=== PATIENT | female | born 1950 | race Caucasian/White ===

== ENCOUNTER 2017-10-27 16:36 | Observation (INO) ==
--- NOTE | 2017-10-27 17:05 | Emergency Department Note ---
Disposition Clinical Impression: Anemia Disposition: Admitted As Inpatient Condition: Fair General Adult HPI - General Chief complaint: ED Recheck/Abnormal Lab/Rx Stated complaint: anemia Source: EMS Limitations: no limitations Nursing Notes Reviewed: Yes Vital Signs Reviewed: Yes - History of Present Illness HPI Narrative: *Patient presents today with CC of: Anemia Patient describes issue began around over the last 2 months patient has been transfused because of anemia and she had been at [facility] being evaluated for collapsed lung as well as abdominal/ARMOR SENIOR SERGEANT malignancy. Patient had blood work done today at the care facility and was seen by Dr. Lares who found the blood count at 7 so she wanted the patient brought to the hospital to get 3 units of blood. Patient is generally asymptomatic and not having any complaints other than generalized weakness. She denies any shortness of breath chest pain or abdominal pain she just got out of the hospital 4 days ago from [facility] after workup for ARMOR SENIOR SERGEANT malignancy and a collapsed left lung Pain Scale: 3 - Related Data Home Medications Medication Instructions Recorded Confirmed Acetaminophen [Tylenol] 650 mg PO Q6HR 10/27/17 10/27/17 Albuterol Sulfate [Ventolin Hfa] 18 gm IH Q4H PRN 10/27/17 10/27/17 Aspirin [Lo-Dose Aspirin EC] 81 mg PO DAILY 10/27/17 10/27/17 Budesonide/Formoterol 160/4.5 2 puff IH BIDR 10/27/17 10/27/17 [Symbicort 160/4.5] Cyclobenzaprine [Flexeril] 5 mg PO PRN PRN 10/27/17 10/27/17 Enoxaparin [Lovenox] 60 mg SQ DAILY 10/27/17 10/27/17 Guaifenesin [Mucinex] 600 mg PO BID 10/27/17 10/27/17 Isavuconazonium Sulfate [Cresemba] 2 cap PO DAILY 10/27/17 10/27/17 Lisinopril [Zestril] 5 mg PO DAILY 10/27/17 10/27/17 Loratadine [Claritin] 10 mg PO PRN PRN 10/27/17 10/27/17 Metoprolol [Lopressor] 25 mg PO BID 10/27/17 10/27/17 Pantoprazole Sodium [Protonix] 40 mg PO BID 10/27/17 10/27/17 Pravastatin Sodium [Pravachol] 40 mg PO DAILY 10/27/17 10/27/17 Simethicone [Gas-X] 80 mg PO Q6H PRN 10/27/17 10/27/17 Tiotropium [Spiriva] 18 mcg IH 0700 10/27/17 10/27/17 Triamcinolone Acet [place] [Kenalog 2 spray NS DAILY 10/27/17 10/27/17 [place]] Urea 100 gm MC BID 10/27/17 10/27/17 Allergies Allergy/AdvReac Type Severity Reaction Status Date / Time ciprofloxacin [From Cipro] Allergy Rash Verified 08/09/17 20:31 prednisone Allergy Rash Verified 08/09/17 20:31 All systems ED: reviewed and negative except as stated. 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 The patient 's medications, allergies, and medical history was reviewed. Family, Social & Surg histories were reviewed and are not relevant except as noted above in the history of present illness, or below in the respective specific section. I have reviewed and agree with all vital signs synchronously available in EMR at the time of this dictation. Times documented are the time of computer entry, are not necessarily the time the event occurred. At least 10 systems reviewed with patient or surrogate during physical exam and are otherwise negative. Physical EXAM: General ~ Constitutional: Conscious & cooperative , pale generally elderly cachectic appearance Head: NCAT Eyes: Sclera white , conjunctiva clear , PERRL, non-icteric ENT : Nose with pink nasal mucosa, nares patent, non tender without bleeding Mouth - mucous membrane moist , pink , no lesions , no trismus Neck - no masses , supple , no cervical spinous process tenderness Pharynx - no exudate , no petechia or obvious lesions , no airway obstruction or stridor Hematologic ~ Lymphatic ~ Immunologic: Lymphadenopathy normal , no petechia , Skin color, nails and pulses unremarkable. Heart ~ Chest: Reg rate , nml Rhythm , nl S1/S2 , no MRG Lungs: Breath sounds equal , clear to auscultation bilaterally , no wheezing, no rales or rhonchi , no CVA tenderness Gastrointestinal ~ Abd: Soft & non tender , BS + in 4 quads , No HSM or masses , no peritoneal signs, colostomy site appears well.surgical wound dressing clean and dry, CT wound unremarkable GenitoUrinary: Deferred Musculoskeletal ~ Back ~ Extremities: Warm and w/o clubbing , cyanosis , or edema. No point tenderness , good ROM of major joints Neurologic: Cranial nerves grossly intact, good muscle strength , attention good , cooperative , Alert and oriented x4 Psychiatric: Calm , Insight and mood appropriate , Skin: No rashes , diminished skin turgor , cap refill 3 seconds , warm and dry - General Limitations: no limitations General appearance: alert, in no apparent distress Course Vital Signs Temperature 98.6 F 10/27/17 16:40 Pulse Rate 110 10/27/17 16:40 Respiratory Rate 16 10/27/17 16:40 Blood Pressure 113/81 10/27/17 16:40 O2 Sat by Pulse Oximetry 98 10/27/17 16:40 Temperature 97 F L 10/27/17 23:26 Pulse Rate 94 10/27/17 23:26 Respiratory Rate 16 10/27/17 23:26 Blood Pressure 127/76 10/27/17 23:26 O2 Sat by Pulse Oximetry 98 10/27/17 23:26 Oxygen Delivery Oxygen Delivery Room Air Medical Decision Making - MDM Narrative Medical decision making narrative: MDM: History and physical exam is consistent with - anemia DDx included multiple etiologies for the symptoms such as - anemia, malignancy , sepsis, atypical CP, ACS, Pneumonia, pneumothorax, Gerd, AAA, PE XRAYS: Not indicated at this time Critical Care: None Condition and evaluation here was discussed in detail. Labwork, and test results were reviewed with the patient. Patient will be typed and crossed and then Dr. Lares had requested 3 units of packed red cells to be administered with 20 mg of Lasix between units - Lab Data Lab Results 10/27/17 Range/Units 17:15 Blood Type A POSITIVE Antibody Screen NEGATIVE Crossmatch See Detail
[2017-10-27] MEDS ORDERED: *HR* OxyCODONE/APAP 5/325 TABLET PO PRN (18:45)
[2017-10-27] MEDS ORDERED: Furosemide 20 MG/2 ML VIAL IVP PRN (18:51)
[2017-10-27] MEDS ORDERED: Naloxone 0.4 MG/ML INJ IVP PRN (20:03)
[2017-10-27] MEDS ORDERED: Simethicone 80 MG TAB.CHEW PO PRN (20:03)
[2017-10-27] MEDS: Acetaminophen 325 MG TABLET PO SCH (20:59)
[2017-10-27] MEDS: UREA MC SCH (21:04)
[2017-10-27] MEDS ORDERED: Budesonide/Formoterol 160/4.5 1 PUFF INH IH SCH (22:00)
[2017-10-27] MEDS: *HR* OxyCODONE/APAP 5/325 TABLET PO PRN (22:00)
[2017-10-27] MEDS: Furosemide 20 MG/2 ML VIAL IVP PRN (23:42)
[2017-10-28] MEDS: Furosemide 20 MG/2 ML VIAL IVP PRN ×2 (03:16→06:38)
[2017-10-28] MEDS: Acetaminophen 325 MG TABLET PO SCH ×2 (03:24→06:37)
[2017-10-28] MEDS ORDERED: Tiotropium 18 MCG inhalation IH SCH (07:00)
[2017-10-28] MEDS ORDERED: Aspirin Enteric Coated 81 MG Tablet PO SCH (09:00)
[2017-10-28] MEDS ORDERED: Loratadine 10 MG TABLET PO SCH (09:00)
[2017-10-28] MEDS ORDERED: ISAVUCONAZONIUM SULFATE PO SCH (09:00)
[2017-10-28] MEDS ORDERED: *HR* Enoxaparin 60 MG/0.6 ML SYRINGE SQ SCH (09:00)
[2017-10-28] MEDS: *HR* OxyCODONE/APAP 5/325 TABLET PO PRN (09:32)
[2017-10-28] MEDS: UREA MC SCH (09:35)
[2017-10-28 10:07] LABS: Basophils # 0.1 K/mcL (0.0-0.2); Basophils % 0.5 %; Eosinophils # 0.2 K/mcL (0.0-0.6); Hematocrit 32.2 % (35.3-44.9); Immature Granulocytes % 1.3 % (0-4); Lymphocytes # 0.7 K/mcL (0.6-4.6); Lymphocytes % 7.6 %; Mean Corpuscular HGB Conc 34.2 g/dL (31.6-35.5); Mean Corpuscular Hemoglobin 30.3 pg (28.0-33.3); Mean Corpuscular Volume 88.7 fL (83.0-100.0); Mean Platelet Volume 9.6 fL (9.4-12.4); Monocytes # 0.9 K/mcL (0.0-1.3); Monocytes % 9.6 %; Neutrophils # 7.7 K/mcL (1.6-8.9); Platelet Count 213 K/mcL (140-400); Red Blood Count 3.63 M/mcL (3.82-4.97); Red Cell Distribution Width 16.4 % (11.5-14.5)
[2017-10-28 10:25] LABS: BUN/Creatinine Ratio 13 (6-26); Blood Urea Nitrogen 10 mg/dL (8-23); Calcium 9.2 mg/dL (8.6-10.3); Carbon Dioxide 24 mEq/L (23-29); Chloride 97 mEq/L (98-107); Glucose 111 mg/dL (70-105); Osmolality,Calculated 268 (280-300); Potassium 3.9 mEq/L (3.5-5.1); Sodium 129 mEq/L (136-145); eGFR For Non-African Americans > 60 (> 60)
[2017-10-28 11:49] VITALS: BP 120/78
--- NOTE | 2017-10-28 12:56 | Internal Med History&Physical ---
Date of Encounter: 10/28/17 Time of Encounter: 12:54 Assessment and Plan (1) Anemia Current visit: Yes Status: Acute Asymptomatic. Patient came with orders to transfuse 3 units of blood with Lasix in between for hemoglobin of 7 Qualifiers: Anemia type: unspecified type Qualified Code(s): D64.9 - Anemia, unspecified (2) Ovarian cancer Current visit: Yes Status: Chronic Scheduled to follow up with oncology on October 30 Qualifiers: Laterality: unspecified laterality Qualified Code(s): C56.9 - Malignant neoplasm of unspecified ovary Internal Medicine - H&P: HPI Admitted From: Long-term Nursing Facility Plans for Post Hospital Care: Transfer [employer] [facility] History of present illness: Ms. Garner is a 67 year old female here for blood transfusion. Hemoglobin 7.0. Has orders to transfuse 3 units of blood with Lasix in between. Patient asymptomatic. Has recently been diagnosed with ovarian cancer. Has had multiple surgeries. As well as blood transfusions. Being seen at [facility] by oncology. Reports recent left pneumothorax and was hospitalized at [facility] and just discharge 3 to 4 days ago. bedside. Denies pain, shortness of breath, fever, chills, nausea or vomiting. Has colostomy bag. Past Med Surg Social Fam HX - Past Medical History Medical history: asthma, cancer, COPD, diabetes, GERD, hyperlipidemia, hypertension, other Additional medical history: ILEOSTOMY Psychiatric history: no psych history - Past Surgical History Surgical History: hysterectomy, other Additional surgical history: bowel obstruction, ILEOSTOMY, TUMOR REMOVAL FROM OVARIES - Social History Smoking Status: Former smoker Smokeless Tobacco Status: No Alcohol use: none Drug use: none Internal Medicine - H&P: Meds Acetaminophen [Tylenol] 650 mg PO Q6HR 10/27/17 [History] Albuterol Sulfate [Ventolin Hfa] 18 gm IH Q4H PRN 10/27/17 [History] Aspirin [Lo-Dose Aspirin EC] 81 mg PO DAILY 10/27/17 [History] Budesonide/Formoterol 160/4.5 [Symbicort 160/4.5] 2 puff IH BIDR 10/27/17 [ History] Cyclobenzaprine [Flexeril] 5 mg PO PRN PRN 10/27/17 [History] Enoxaparin [Lovenox] 60 mg SQ DAILY 10/27/17 [History] Guaifenesin [Mucinex] 600 mg PO BID 10/27/17 [History] Isavuconazonium Sulfate [Cresemba] 2 cap PO DAILY 10/27/17 [History] Lisinopril [Zestril] 5 mg PO DAILY 10/27/17 [History] Loratadine [Claritin] 10 mg PO PRN PRN 10/27/17 [History] Metoprolol [Lopressor] 25 mg PO BID 10/27/17 [History] Pantoprazole Sodium [Protonix] 40 mg PO BID 10/27/17 [History] Pravastatin Sodium [Pravachol] 40 mg PO DAILY 10/27/17 [History] Simethicone [Gas-X] 80 mg PO Q6H PRN 10/27/17 [History] Tiotropium [Spiriva] 18 mcg IH 0700 10/27/17 [History] Triamcinolone Acet [place] [Kenalog [place]] 2 spray NS DAILY 10/27/17 [History] Urea 100 gm MC BID 10/27/17 [History] 3 Allergy/AdvReac Type Severity Reaction Status Date / Time ciprofloxacin [From Cipro] Allergy Rash Verified 08/09/17 20:31 prednisone Allergy Rash Verified 08/09/17 20:31 All Systems PM: A 10-system review of systems was performed and is negative for pertinent findings except as documented above in the HPI. - Constitutional Constitutional: no chills, no fever(s), no night sweats - EENT Eyes: no change in vision, no discharge, no pain, no photophobia Ears: no ear discharge, no ear pain, no tinnitus Nose, mouth and throat: no dysphagia, no nasal discharge, no neck pain, no sore throat - Cardiovascular Cardiovascular ROS IM: no chest pain, no diaphoresis, no dyspnea, no lightheadedness, no palpitations, no syncope - Respiratory Respiratory: no cough, no dyspnea, no wheezing, no excessive phlegm production - Gastrointestinal Gastrointestinal: no abdominal pain, no diarrhea, no hematemesis, no hematochezia, no melena, no nausea, no vomiting - Genitourinary Genitourinary: no change in urinary stream, no dysuria, no flank pain, no hematuria - Musculoskeletal Musculoskeletal ROS IM: no numbness, no tingling - Integumentary Integumentary IM: no rash, no unusual bruising - Neurological Neurological ROS: no confusion, no convulsions, no focal weakness, no numbness, no tingling, no tremor(s) - Hematologic/Lymphatic Hematologic/Lymphatic: no easy bruising - Constitutional Vitals: Temp Pulse Resp BP Pulse Ox 98.6 F 88 17 120/78 93 10/28/17 11:43 10/28/17 11:43 10/28/17 11:43 10/28/17 11:43 10/28/17 11:43 General appearance: Present: A&O X 3, pleasant, no acute distress, answers questions appropriately - Head Head exam: Present: atraumatic, normocephalic - Eye Eye exam: Present: PERRL, conjuntiva pink, sclera anicteric Pupils: Present: PERRL - Neck Neck exam general surgery: Present: supple, trachea midline. Absent: lymphadenopathy - Respiratory Respiratory exam: Present: CTAB. Absent: accessory muscle use, rales, rhonchi, wheezes - Cardiovascular Cardiovascular exam: Present: RRR, +S1, +S2. Absent: diastolic murmur, gallop, rubs, systolic murmur - GI/Abdominal GI/Abdominal exam: Present: normal bowel sounds, soft, no peritoneal signs. Absent: distended, tenderness Additional comments: Colostomy - Extremities Exam Extremities exam: Present: warm, radial pulses palpable and symmetrical. Absent : calf tenderness, cyanotic, pedal edema - Neurological Exam Neurological exam: Present: CN II-XII intact, oriented X3, no focal deficits. Absent: pronater drift, facial droop, speech deficit - Skin Skin exam: Present: dry, intact Additional comments: Dime sized with to coccyx area. Stage 2 Internal Med - H&P Results - Labs CBC & Chem 7: 10/28/17 10:00 10/28/17 10:00 Labs: Short CBC 10/28/17 Range/Units 10:00 WBC 9.7 (4.3-11.1) K/mcL Hgb 11.0 L D (11.5-15.4) g/dL Hct 32.2 L (35.3-44.9) % Plt Count 213 (140-400) K/mcL Neutrophils # 7.7 (1.6-8.9) K/mcL BMP 10/28/17 10:00 Sodium 129 L Potassium 3.9 Chloride 97 L Carbon Dioxide 24 BUN 10 Creatinine 0.77 Glucose 111 H Calcium 9.2 - VTE Documentation of Mechanical Device: Intermittent pneumatic compression device
--- NOTE | 2017-10-28 13:01 | Discharge Summary ---
Date of Encounter: 10/28/17 Time of Encounter: 12:59 - Discharge Diagnosis (1) Anemia Priority: Primary Status: Acute Comments: Follow up with oncology as scheduled. Has appointment October 30. Hemoglobin stable at 11.0 after receiving 3 units. Qualifiers: Anemia type: unspecified type Qualified Code(s): D64.9 - Anemia, unspecified (2) Ovarian cancer Priority: Secondary Status: Chronic Comments: Follow up with oncology Qualifiers: Laterality: unspecified laterality Qualified Code(s): C56.9 - Malignant neoplasm of unspecified ovary Hospital course: Ms. Garner is a 67 year old female discharging back to [facility] after receiving 3 units packed red blood cells. Patient asymptomatic and denies complaints. at bedside. Has follow-up appointment scheduled with oncology at [facility] on October 30.. Discharge discussed with: patient, family, nurse - Time Spent with Patient Total time spent providing and/or coordinating discharge services: Less than 30 minutes - Discharge Medications Home Medications: Acetaminophen [Tylenol] 650 mg PO Q6HR 10/27/17 [History] Albuterol Sulfate [Ventolin Hfa] 18 gm IH Q4H PRN 10/27/17 [History] Aspirin [Lo-Dose Aspirin EC] 81 mg PO DAILY 10/27/17 [History] Budesonide/Formoterol 160/4.5 [Symbicort 160/4.5] 2 puff IH BIDR 10/27/17 [ History] Cyclobenzaprine [Flexeril] 5 mg PO PRN PRN 10/27/17 [History] Enoxaparin [Lovenox] 60 mg SQ DAILY 10/27/17 [History] Guaifenesin [Mucinex] 600 mg PO BID 10/27/17 [History] Isavuconazonium Sulfate [Cresemba] 2 cap PO DAILY 10/27/17 [History] Lisinopril [Zestril] 5 mg PO DAILY 10/27/17 [History] Loratadine [Claritin] 10 mg PO PRN PRN 10/27/17 [History] Metoprolol [Lopressor] 25 mg PO BID 10/27/17 [History] Pantoprazole Sodium [Protonix] 40 mg PO BID 10/27/17 [History] Pravastatin Sodium [Pravachol] 40 mg PO DAILY 10/27/17 [History] Simethicone [Gas-X] 80 mg PO Q6H PRN 10/27/17 [History] Tiotropium [Spiriva] 18 mcg IH 0700 10/27/17 [History] Triamcinolone Acet [place] [Kenalog [place]] 2 spray NS DAILY 10/27/17 [History] Urea 100 gm MC BID 10/27/17 [History] Allergies/Adverse Reactions: 3 Allergy/AdvReac Type Severity Reaction Status Date / Time ciprofloxacin [From Cipro] Allergy Rash Verified 08/09/17 20:31 prednisone Allergy Rash Verified 08/09/17 20:31 Date of admission: 10/27/17 18:14 Primary care physician: Onel Garcia Discharging clinician: Sourav Hamm Anticipated date of discharge: 10/28/17 - Constitutional Vitals: Temp Pulse Resp BP Pulse Ox 98.6 F 88 17 120/78 93 10/28/17 11:43 10/28/17 11:43 10/28/17 11:43 10/28/17 11:43 10/28/17 11:43 General appearance: Present: cooperative, A&O X 3, pleasant, no acute distress, answers questions appropriately - Head Head exam: Present: atraumatic, normocephalic - Eye Eye exam: Present: PERRL, conjuntiva pink, sclera anicteric Pupils: Present: PERRL - Neck Neck exam general surgery: Present: supple, trachea midline. Absent: lymphadenopathy - Respiratory Respiratory exam: Present: CTAB. Absent: accessory muscle use, rales, rhonchi, wheezes - Cardiovascular Cardiovascular exam: Present: RRR, +S1, +S2. Absent: diastolic murmur, gallop, rubs, systolic murmur - GI/Abdominal GI/Abdominal exam: Present: normal bowel sounds, soft, no peritoneal signs. Absent: distended, tenderness Additional comments: Colostomy - Extremities Exam Extremities exam: Present: warm, radial pulses palpable and symmetrical. Absent : calf tenderness, cyanotic, pedal edema - Neurological Exam Neurological exam: Present: CN II-XII intact, oriented X3, no focal deficits. Absent: pronater drift, facial droop, speech deficit - Skin Skin exam: Present: dry, intact - Patient Status Disposition: Transfer SNF Condition: Fair Functional capacity at discharge: bed bound Overall status at discharge: patient is progressing back to baseline - Discharge Instructions Follow Up With: Onel Garcia MD [Primary Care Provider] - - Diet and Activity Activity: as per physical therapy Diet: advance to your usual diet - VTE Documentation of Mechanical Device: Intermittent pneumatic compression device
== END 2017-10-28 13:15 ==
LOC: INPGRE 16:36 → EMEROOGRE 16:36 → INPGRE 18:19

== ENCOUNTER 2017-12-13 03:34 | Inpatient (IN) ==
--- NOTE | 2017-12-13 04:05 | Emergency Department Note ---
Disposition Clinical Impression: Hyponatremia Disposition: Admitted As Inpatient Referrals: Mary Lares MD [Primary Care Provider] - General Adult HPI - General Stated complaint: pain in top of head Time Seen by Provider: 12/13/17 03:50 Source: patient, family Mode of arrival: ambulatory Limitations: no limitations Nursing Notes Reviewed: Yes Vital Signs Reviewed: Yes - History of Present Illness HPI Narrative: Patient is sent here by primary care provider because of a low sodium. Family says his been fighting a low sodium for quite some time. She has ovarian cancer and chemotherapy on Sunday. In the hospital not too long ago and high sick ever get her sodium was 127. She apparently had recheck last night and it was 120 so they sent her here to the emergency department Onset (ago): week(s) Pain Severity: similar to prior episodes Improves with: nothing Worsens with: nothing Associated symptoms: Reports: denies other symptoms (Nothing acute. She has continued pain in her left leg from foot drop from a blood clot.) - Related Data Home Medications Medication Instructions Recorded Confirmed Acetaminophen [Tylenol] 650 mg PO Q6HR 10/27/17 12/13/17 Guaifenesin [Mucinex] 600 mg PO BID 10/27/17 12/13/17 Loratadine [Claritin] 10 mg PO PRN PRN 10/27/17 12/13/17 Pantoprazole Sodium [Protonix] 40 mg PO BID 10/27/17 12/13/17 Pravastatin Sodium [Pravachol] 40 mg PO DAILY 10/27/17 12/13/17 Simethicone [Gas-X] 80 mg PO Q6H PRN 10/27/17 12/13/17 Tiotropium [Spiriva] 18 mcg IH 0700 10/27/17 12/13/17 Urea 100 gm MC BID 10/27/17 12/13/17 Cholecalciferol (Vitamin D3) 50,000 unit PO QWEEK 12/13/17 12/13/17 [Vitamin D3] Cyanocobalamin (Vitamin B-12) 2,000 mcg SL DAILY 12/13/17 12/13/17 [B-12] Ferrous Sulfate [Iron] 325 mg PO DAILY 12/13/17 12/13/17 Fluticasone/Vilanterol [Breo 1 each IH DAILY 12/13/17 12/13/17 Ellipta 100-25 Mcg INH] Isavuconazonium Sulfate [Cresemba] 2 cap PO DAILY 12/13/17 12/13/17 Magnesium Oxide [Magnesium] 500 mg PO DAILY 12/13/17 12/13/17 Melatonin [Melatin] 3 mg PO HS 12/13/17 12/13/17 Mirtazapine [Remeron] 15 mg PO HS 12/13/17 12/13/17 Ondansetron ODT [Zofran ODT] 4 mg SL Q6HR PRN 12/13/17 12/13/17 OxyCODONE Immed Rel [Roxicodone 5 5 mg PO DAILY 12/13/17 12/13/17 MG] OxyCODONE Immed Rel [Roxicodone 5 5 mg PO HS 12/13/17 12/13/17 MG] OxyCODONE Immed Rel [Roxicodone 5 5 mg PO Q6HR PRN 12/13/17 12/13/17 MG] Rivaroxaban [Xarelto] 20 mg PO DAILY 12/13/17 12/13/17 Sodium Chloride [Sodium Chloride 1 gm PO TID 12/13/17 12/13/17 Tab] Triamcinolone Acetonide [Nasacort] 2 spray NS DAILY 12/13/17 12/13/17 Allergies Allergy/AdvReac Type Severity Reaction Status Date / Time ciprofloxacin [From Cipro] Allergy Rash Verified 12/13/17 03:42 prednisone Allergy Rash Verified 12/13/17 03:42 All systems ED: reviewed and negative except as stated. Review of Systems: As Per HPI Constitutional: Denies: fever, chills, weakness, weight change Eyes: Denies: eye pain, eye discharge, vision change ENT ED: Denies: ear pain, throat pain, dental pain, hearing loss, epistaxis, congestion, dysphagia Cardiovascular: Denies: chest pain, palpitations, dyspnea on exertion, edema, syncope Respiratory: Denies: cough, dyspnea, wheezes, hemoptysis, stridor Gastrointestinal: Denies: abdominal pain, nausea, vomiting, diarrhea, constipation, hematemesis, melena, hematochezia Genitourinary: Denies: dysuria, frequency, hematuria, discharge Musculoskeletal: Reports: as per HPI Integumentary: Denies: rash, abrasion, lesions Neurological: Denies: headache, weakness, numbness, paresthesias, confusion, abnormal gait, vertigo Psychiatric: Denies: anxiety, depression, suicidal thoughts, homicidal thoughts , auditory hallucinations, visual hallucinations Endocrine: Reports: as per HPI (low sodium). Denies: fatigue Hematological/Lymphatic: Denies: easy bleeding, easy bruising Allergic/Immunologic: Denies: facial swelling, urticaria Past Medical History - Past Medical History Attestation: Yes The following information was validated with the patient. 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 - Social History Smoking Status: Former smoker Smokeless Tobacco Status: No Alcohol use: Reports: none Drug use: Reports: none Physical Exam - General Limitations: no limitations General appearance: alert, in no apparent distress - Head Head exam: atraumatic, normocephalic, normal inspection - Eye Eye exam: Present: normal appearance, PERRL, EOMI - ENT ENT exam: normal exam, normal oropharynx, mucous membranes moist - Neck Neck exam: Present: normal inspection, full ROM, trachea midline - Chest Chest inspection: Present: normal inspection, symmetric chest wall rise - Respiratory Respiratory exam: Present: normal lung sounds bilaterally - Cardiovascular Cardiovascular exam: Present: regular rate, normal rhythm, normal heart sounds - Abdominal Exam Abdominal exam: Present: soft, Non-Tender - Extremities Exam Extremities exam: Present: normal inspection, other (slightly decreased turgor) - Back Exam Back exam: Present: normal inspection, full ROM. Absent: tenderness - Neurological Exam Neurological exam: Present: alert, oriented X3 - Psychiatric Psychiatric exam: Present: normal affect, normal mood - Skin Skin exam: Present: warm, dry, intact Medical Decision Making - MDM Narrative Medical decision making narrative: I reviewed the patient's medication list Case was discussed with Dr. Hamm who agrees with admission to the hospital and place the patient on fluid restriction - Lab Data Lab results reviewed: Yes I reviewed the patient's lab results.
[2017-12-13] MEDS ORDERED: 0.9 % Sodium Chloride 1,000 ML IVC ONE (04:06)
[2017-12-13 04:24] LABS: Basophils % 0.4 %; Eosinophils # 0.1 K/mcL (0.0-0.6); Hematocrit 25.3 % (35.3-44.9); Hemoglobin 8.9 g/dL (11.5-15.4); Immature Granulocytes % 10.3 % (0-4); Lymphocytes # 0.5 K/mcL (0.6-4.6); Lymphocytes % 5.9 %; Mean Corpuscular HGB Conc 35.2 g/dL (31.6-35.5); Mean Corpuscular Hemoglobin 31.2 pg (28.0-33.3); Mean Corpuscular Volume 88.8 fL (83.0-100.0); Mean Platelet Volume 10.2 fL (9.4-12.4); Monocytes # 0.3 K/mcL (0.0-1.3); Monocytes % 4.4 %; Neutrophils # 6.1 K/mcL (1.6-8.9); Platelet Count 218 K/mcL (140-400); Red Blood Count 2.85 M/mcL (3.82-4.97)
[2017-12-13 04:50] LABS: BUN/Creatinine Ratio 9 (6-26); Blood Urea Nitrogen 4 mg/dL (8-23); Calcium 7.9 mg/dL (8.6-10.3); Carbon Dioxide 25 mEq/L (23-29); Chloride 92 mEq/L (98-107); Glucose 99 mg/dL (70-105); Osmolality,Calculated 247 (280-300); Potassium 3.2 mEq/L (3.5-5.1); Sodium 120 mEq/L (136-145); eGFR For Non-African Americans > 60 (> 60)
[2017-12-13] MEDS ORDERED: Simethicone 80 MG TAB.CHEW PO PRN (06:13)
[2017-12-13] MEDS ORDERED: Ondansetron ODT 4 MG TAB.RAPDIS SL PRN (06:13)
[2017-12-13] MEDS ORDERED: Naloxone 0.4 MG/ML INJ IVP PRN (06:13)
[2017-12-13] MEDS ORDERED: *HR* OxyCODONE Immed Rel 5 MG TABLET PO PRN (06:13)
[2017-12-13] MEDS ORDERED: Loratadine 10 MG TABLET PO PRN (06:13)
[2017-12-13] MEDS: Acetaminophen 325 MG TABLET PO SCH ×4 (06:42→23:38)
[2017-12-13] MEDS: *HR* Rivaroxaban 10 MG TABLET PO SCH (09:25)
[2017-12-13] MEDS: Magnesium Oxide 400 MG TABLET PO SCH (09:26)
[2017-12-13] MEDS: *HR* OxyCODONE Immed Rel 5 MG TABLET PO SCH ×2 (09:26→23:38)
[2017-12-13] MEDS: UREA TP SCH ×2 (09:27→23:35)
[2017-12-13] MEDS: ISAVUCONAZONIUM SULFATE PO SCH (09:27)
[2017-12-13] MEDS: Cyanocobalamin (B-12) 1,000 MCG TABLET PO SCH (09:27)
[2017-12-13] MEDS: (Breo Ellipta 100-25 Mcg Inh) IH SCH (09:28)
--- NOTE | 2017-12-13 09:49 | Internal Med History&Physical ---
Date of Encounter: 12/13/17 Time of Encounter: 09:37 Assessment and Plan (1) Hyponatremia Current visit: Yes Status: Acute Sodium 120. Placed on fluid restriction. Will monitor labs. Asymptomatic (2) Hypokalemia Current visit: Yes Status: Acute Potassium 3.2. Will start supplement. (3) Anemia Current visit: Yes Status: Acute Stable at 8.9. Asymptomatic Qualifiers: Anemia type: unspecified type Qualified Code(s): D64.9 - Anemia, unspecified (4) Ovarian cancer Current visit: Yes Status: Chronic Currently undergoing chemotherapy. Scheduled for chemo again on Sunday. Follow up with oncologist as scheduled. Qualifiers: Laterality: unspecified laterality Qualified Code(s): C56.9 - Malignant neoplasm of unspecified ovary Internal Medicine - H&P: HPI Admitted From: Emergency Dept Plans for Post Hospital Care: Home History of present illness: Ms. Garner is a 67 year old female patient here for observation after being sent to the emergency room for hyponatremia. Patient was at [facility]. Sodium resolved 120. Patient has history of ovarian cancer, COPD, hypertension , colostomy, Gerd, diabetes. Patient has a DVT in left leg. Has a filter placed in left groin. Patient was placed on fluid restriction. Hyponatremia is an ongoing problem for several months now. Patient is scheduled for chemotherapy on Sunday. States she has had sinus headache for 3 days now. Denies fever, chills, nausea, vomiting or diarrhea. Denies shortness of breath or chest pain. at bedside and participates with care. Past Med Surg Social Fam HX - Past Medical History Medical history: asthma, cancer, COPD, diabetes, GERD, hyperlipidemia, hypertension, other Additional medical history: Ovarian cancer Psychiatric history: no psych history - Past Surgical History Surgical History: hysterectomy, other Additional surgical history: Tumor removed from ovarian cancer - Social History Smoking Status: Former smoker Smokeless Tobacco Status: No Alcohol use: none Drug use: none - Family History Mother Living Status: Hx Family Cardiac Disorders: Yes Grandmother Living Status: Hx Family Endocrine Disorder: Yes Internal Medicine - H&P: Meds Acetaminophen [Tylenol] 650 mg PO Q6HR 10/27/17 [History] Guaifenesin [Mucinex] 600 mg PO BID 10/27/17 [History] Loratadine [Claritin] 10 mg PO PRN PRN 10/27/17 [History] Pantoprazole Sodium [Protonix] 40 mg PO BID 10/27/17 [History] Pravastatin Sodium [Pravachol] 40 mg PO DAILY 10/27/17 [History] Simethicone [Gas-X] 80 mg PO Q6H PRN 10/27/17 [History] Tiotropium [Spiriva] 18 mcg IH 0700 10/27/17 [History] Urea 100 gm MC BID 10/27/17 [History] Cholecalciferol (Vitamin D3) [Vitamin D3] 50,000 unit PO QWEEK 12/13/17 [History ] Cyanocobalamin (Vitamin B-12) [B-12] 2,000 mcg SL DAILY 12/13/17 [History] Ferrous Sulfate [Iron] 325 mg PO DAILY 12/13/17 [History] Fluticasone/Vilanterol [Breo Ellipta 100-25 Mcg INH] 1 each IH DAILY 12/13/17 [ History] Isavuconazonium Sulfate [Cresemba] 2 cap PO DAILY 12/13/17 [History] Magnesium Oxide [Magnesium] 500 mg PO DAILY 12/13/17 [History] Melatonin [Melatin] 3 mg PO HS 12/13/17 [History] Mirtazapine [Remeron] 15 mg PO HS 12/13/17 [History] Ondansetron ODT [Zofran ODT] 4 mg SL Q6HR PRN 12/13/17 [History] OxyCODONE Immed Rel [Roxicodone 5 MG] 5 mg PO DAILY 12/13/17 [History] OxyCODONE Immed Rel [Roxicodone 5 MG] 5 mg PO HS 12/13/17 [History] OxyCODONE Immed Rel [Roxicodone 5 MG] 5 mg PO Q6HR PRN 12/13/17 [History] Rivaroxaban [Xarelto] 20 mg PO DAILY 12/13/17 [History] Sodium Chloride [Sodium Chloride Tab] 1 gm PO TID 12/13/17 [History] Triamcinolone Acetonide [Nasacort] 2 spray NS DAILY 12/13/17 [History] 3 Allergy/AdvReac Type Severity Reaction Status Date / Time ciprofloxacin [From Cipro] Allergy Rash Verified 12/13/17 03:42 prednisone Allergy Rash Verified 12/13/17 03:42 All Systems PM: A 10-system review of systems was performed and is negative for pertinent findings except as documented above in the HPI. - Constitutional Constitutional: no chills, no fever(s), no night sweats - EENT Eyes: no change in vision, no discharge, no pain, no photophobia Ears: no ear discharge, no ear pain, no tinnitus Nose, mouth and throat: no dysphagia, no nasal discharge, no neck pain, no sore throat - Cardiovascular Cardiovascular ROS IM: no chest pain, no diaphoresis, no dyspnea, no lightheadedness, no palpitations, no syncope - Respiratory Respiratory: no cough, no dyspnea, no wheezing, no excessive phlegm production - Gastrointestinal Gastrointestinal: no abdominal pain, no diarrhea, no hematemesis, no hematochezia, no melena, no nausea, no vomiting - Genitourinary Genitourinary: no change in urinary stream, no dysuria, no flank pain, no hematuria - Musculoskeletal Musculoskeletal ROS IM: no numbness, no tingling - Integumentary Integumentary IM: no rash, no unusual bruising - Neurological Neurological ROS: no confusion, no convulsions, no focal weakness, no numbness, no tingling, no tremor(s) - Hematologic/Lymphatic Hematologic/Lymphatic: no easy bruising - Constitutional Vitals: Temp Pulse Resp BP Pulse Ox 97.2 F L 98 17 147/79 98 12/13/17 06:57 12/13/17 06:57 12/13/17 06:57 12/13/17 06:57 12/13/17 06:57 General appearance: Present: A&O X 3, pleasant, no acute distress, answers questions appropriately - Head Head exam: Present: atraumatic, normocephalic - Eye Eye exam: Present: PERRL, conjuntiva pink, sclera anicteric Pupils: Present: PERRL - Neck Neck exam general surgery: Present: supple, trachea midline. Absent: lymphadenopathy - Respiratory Respiratory exam: Present: CTAB. Absent: accessory muscle use, rales, rhonchi, wheezes - Cardiovascular Cardiovascular exam: Present: RRR, +S1, +S2. Absent: diastolic murmur, gallop, rubs, systolic murmur - GI/Abdominal GI/Abdominal exam: Present: normal bowel sounds, soft, no peritoneal signs. Absent: distended, tenderness Additional comments: Colostomy - Extremities Exam Extremities exam: Present: warm, radial pulses palpable and symmetrical. Absent : calf tenderness, cyanotic, pedal edema Additional comments: Left lower extremity slight edema, non-pitting - Neurological Exam Neurological exam: Present: CN II-XII intact, oriented X3, no focal deficits. Absent: pronater drift, facial droop, speech deficit - Skin Skin exam: Present: dry, intact Internal Med - H&P Results - Labs CBC & Chem 7: 12/13/17 04:21 12/13/17 04:21
[2017-12-13] MEDS: Tiotropium 18 MCG inhalation IH SCH (09:52)
[2017-12-13] MEDS: Cholecalciferol (D-3) 1,000 UNIT TABLET PO SCH (13:42)
[2017-12-13 14:01] LABS: Bilirubin,Urine Negative (Negative); Blood,Urine Negative (Negative); Clarity,Urine Clear (Clear); Color,Urine Yellow (Yellow); Glucose,Urine (UA) Normal (Normal); Ketones,Urine Negative (Negative); Leukocyte Esterase,Urine Negative (Negative); Nitrite,Urine Negative (Negative); Protein,Urine Negative (Neg-Trace); Specific Gravity,Urine 1.015 (1.010-1.025); Urobilinogen,Urine Normal (Normal)
[2017-12-13] MEDS ORDERED: tiZANidine 4 MG TABLET PO PRN (18:24)
[2017-12-13] MEDS: Melatonin 3 MG TABLET PO SCH (23:35)
[2017-12-13] MEDS: Mirtazapine 15 MG TABLET PO SCH (23:35)
[2017-12-14] MEDS: Acetaminophen 325 MG TABLET PO SCH ×4 (06:30→23:46)
[2017-12-14] MEDS: Tiotropium 18 MCG inhalation IH SCH (08:13)
[2017-12-14] MEDS: Cholecalciferol (D-3) 1,000 UNIT TABLET PO SCH (09:17)
[2017-12-14] MEDS: *HR* Rivaroxaban 10 MG TABLET PO SCH (09:18)
[2017-12-14] MEDS: Magnesium Oxide 400 MG TABLET PO SCH (09:18)
[2017-12-14] MEDS: Cyanocobalamin (B-12) 1,000 MCG TABLET PO SCH (09:18)
[2017-12-14] MEDS: *HR* OxyCODONE Immed Rel 5 MG TABLET PO SCH ×2 (09:19→20:56)
[2017-12-14] MEDS: (Breo Ellipta 100-25 Mcg Inh) IH SCH (09:19)
[2017-12-14] MEDS: UREA TP SCH ×2 (09:24→20:55)
[2017-12-14] MEDS: ISAVUCONAZONIUM SULFATE PO SCH (09:24)
--- NOTE | 2017-12-14 09:28 | Internal Med Progress Note ---
Date of Encounter: 12/14/17 Time of Encounter: 09:26 - Assessment and plan (1) Hyponatremia Current Visit: Yes Status: Acute Assessment and plan: Labs ordered for today. Will monitor. Asymptomatic at this time. (2) Hypokalemia Current Visit: Yes Status: Acute Assessment and plan: Will repeat labs today. Will monitor for results. (3) Anemia Current Visit: Yes Status: Acute Assessment and plan: Stable. Asymptomatic. Will repeat labs today. Qualifiers: Anemia type: unspecified type Qualified Code(s): D64.9 - Anemia, unspecified (4) Ovarian cancer Current Visit: Yes Status: Chronic Assessment and plan: Follow up with oncology as scheduled. Reports to have 3 chemo treatments left. Qualifiers: Laterality: unspecified laterality Qualified Code(s): C56.9 - Malignant neoplasm of unspecified ovary - Time Spent With Patient less than 15 minutes - Subjective Interval history: c/o pain in left ankle. xray unremarkable. c/o off and on discomfort in left lower back. will increase tizanidine. states abdominal and pain has improved. Was able to eat a bowl of cereal this morning. Colostomy producing. Dressing to abdominal area is dry and intact. Denies any other complaints at this time. at bedside. - Constitutional Vitals: Temp Pulse Resp BP Pulse Ox 98.0 F 118 18 159/84 93 12/14/17 08:00 12/14/17 08:00 12/14/17 08:24 12/14/17 08:00 12/14/17 08:24 General appearance: Present: A&O X 3, pleasant, no acute distress, answers questions appropriately - Head Head exam: Present: atraumatic, normocephalic - Eye Eye exam: Present: PERRL, conjuntiva pink, sclera anicteric Pupils: Present: PERRL - Neck Neck exam general surgery: Present: supple, trachea midline. Absent: lymphadenopathy - Respiratory Respiratory exam: Present: CTAB. Absent: accessory muscle use, rales, rhonchi, wheezes - Cardiovascular Cardiovascular exam: Present: irregular rhythm, +S1, +S2. Absent: diastolic murmur, gallop, rubs, systolic murmur - GI/Abdominal GI/Abdominal exam: Present: normal bowel sounds, soft, no peritoneal signs. Absent: distended, tenderness Additional comments: Colostomy intact - Extremities Exam Extremities exam: Present: warm, radial pulses palpable and symmetrical. Absent : calf tenderness, cyanotic, pedal edema Additional comments: Left foot drop - Neurological Exam Neurological exam: Present: CN II-XII intact, oriented X3, no focal deficits. Absent: pronater drift, facial droop, speech deficit - Skin Skin exam: Present: dry, intact Additional comments: Abdominal dressing dry and intact. Internal Medicine: Result - Labs CBC & Chem 7: 12/13/17 04:21 12/13/17 04:21 Labs: Urine 12/13/17 Range/Units 12:50 Urine Color Yellow (Yellow) Urine Clarity Clear (Clear) Urine pH 7.0 (5.0-8.0) pH Units Ur Specific [place] 1.015 (1.010-1.025) Urine Protein Negative (Neg-Trace) mg/dL Urine Glucose (UA) Normal (Normal) mg/dL - Impressions Impressions Ankle X-Ray 12/13/17 13:06 IMPRESSION: No radiographic evidence of acute osseous abnormalities. D/ / Cameron Melendrez MD / Cameron Melendrez MD Interpreting Provider: Cameron Melendrez MD Chest X-Ray 12/13/17 13:07 IMPRESSION: 1. No acute findings in the chest. 2. Left basilar scarring and suspected trace pleural effusion. D/ / Cristopher Love MD / Cristopher Love MD Interpreting Provider: Cristopher Love MD Consult Discharge Plan - Plan
[2017-12-14] MEDS: tiZANidine 4 MG TABLET PO PRN ×2 (10:29→15:26)
[2017-12-14 12:55] LABS: BUN/Creatinine Ratio 12 (6-26); Blood Urea Nitrogen 6 mg/dL (8-23); Calcium 8.6 mg/dL (8.6-10.3); Carbon Dioxide 25 mEq/L (23-29); Chloride 97 mEq/L (98-107); Glucose 100 mg/dL (70-105); Osmolality,Calculated 264 (280-300); Potassium 3.9 mEq/L (3.5-5.1); Sodium 128 mEq/L (136-145); eGFR For Non-African Americans > 60 (> 60)
[2017-12-14] MEDS: Mirtazapine 15 MG TABLET PO SCH (20:55)
[2017-12-14] MEDS: Melatonin 3 MG TABLET PO SCH (20:55)
[2017-12-15] MEDS: Acetaminophen 325 MG TABLET PO SCH ×2 (05:35→13:50)
--- NOTE | 2017-12-15 10:18 | Electrocardiograph Report ---
[place] [id number] Test Date: 2017-12-13 Pat Name: Shelly Garner Department: 2001 Room: 113 Gender: F Teletype Or [place]ity[place] Keyboard Operator: Tb : 1950 Requested By: Sourav Hamm Order Number: [id number] Reading MD: Mare Murdock Measurements Intervals [place] Rate: 115 P: NH: 0 QRS: 41 QRSD: 92 T: 45 QT: 296 QTc: 364 Interpretive Statements SINUS TACHYCARDIA NONSPECIFIC T-WAVE ABNORMALITY ABNORMAL RHYTHM ECG Electronically Signed On 12-15-2017 10:16:59 EDT by Mare Murdock
[2017-12-15] MEDS: Cholecalciferol (D-3) 1,000 UNIT TABLET PO SCH (11:10)
[2017-12-15] MEDS: Cyanocobalamin (B-12) 1,000 MCG TABLET PO SCH (11:10)
[2017-12-15] MEDS: *HR* OxyCODONE Immed Rel 5 MG TABLET PO SCH (11:11)
[2017-12-15] MEDS: *HR* Rivaroxaban 10 MG TABLET PO SCH (11:11)
[2017-12-15] MEDS: Magnesium Oxide 400 MG TABLET PO SCH (11:12)
[2017-12-15 11:40] VITALS: BP 151/92
[2017-12-15 11:43] LABS: BUN/Creatinine Ratio 13 (6-26); Blood Urea Nitrogen 8 mg/dL (8-23); Calcium 8.8 mg/dL (8.6-10.3); Carbon Dioxide 19 mEq/L (23-29); Chloride 100 mEq/L (98-107); Glucose 103 mg/dL (70-105); Osmolality,Calculated 263 (280-300); Potassium 4.4 mEq/L (3.5-5.1); Sodium 127 mEq/L (136-145); eGFR For Non-African Americans > 60 (> 60)
[2017-12-15] MEDS: ISAVUCONAZONIUM SULFATE PO SCH (12:11)
[2017-12-15] MEDS: (Breo Ellipta 100-25 Mcg Inh) IH SCH (12:11)
[2017-12-15] MEDS: UREA TP SCH (12:11)
[2017-12-15] MEDS: Tiotropium 18 MCG inhalation IH SCH (12:58)
--- NOTE | 2017-12-15 13:28 | Discharge Summary ---
- NOTES TO OUTPATIENT PROVIDER Notes to Outpatient Provider: Only to be considered for liberalization of fluids status and continuation of demeclocycline. Recommend at least once weekly having sodium level checked. Orders not resulted at time of discharge: Pending orders 12/13/17 15:00 Culture,Wound [RM] Routine Date of Encounter: 12/15/17 Time of Encounter: 13:26 - Discharge Diagnosis (1) Hyponatremia Priority: Primary Status: Resolved (2) Ovarian cancer Priority: Secondary Status: Chronic Qualifiers: Laterality: unspecified laterality Qualified Code(s): C56.9 - Malignant neoplasm of unspecified ovary (3) COPD (chronic obstructive pulmonary disease) Priority: Secondary Status: Chronic Qualifiers: COPD type: emphysema Emphysema type: unspecified Qualified Code(s): J43.9 - Emphysema, unspecified (4) Hypertension Priority: Secondary Status: Acute Qualifiers: Hypertension type: essential hypertension Qualified Code(s): I10 - Essential (primary) hypertension (5) S/P colostomy Priority: Secondary Status: Chronic (6) GERD (gastroesophageal reflux disease) Priority: Secondary Status: Chronic Qualifiers: Esophagitis presence: without esophagitis Qualified Code(s): K21.9 - Gastro -esophageal reflux disease without esophagitis (7) Diabetes Priority: Secondary Status: Acute Qualifiers: Diabetes mellitus type: type 2 Diabetes mellitus watermaster insulin use: without mcc use Diabetes mellitus complication status: without complication Qualified Code(s): E11.9 - Type 2 diabetes mellitus without complications (8) Anemia Priority: Secondary Status: Acute Qualifiers: Anemia type: unspecified type Qualified Code(s): D64.9 - Anemia, unspecified (9) Hypokalemia Priority: Secondary Status: Acute Hospital course: Ms. Garner is a 67 year old female with history of ovarian cancer who has multiple episodes of hyponatremia. She was to see a rejected items clerk but did not keep this appointment. She was admitted with a sodium of 120 and because his persisted, even with distraction, we added demeclocycline. She had quick elevation of her sodium to 128 and was 127 at discharge. We will ask that she be monitored at her ECF and consider nephrology follow-up if this is continued problem. - Time Spent with Patient Total time spent providing and/or coordinating discharge services: - Discharge Medications Prescriptions: Demeclocycline [Declomycin] 300 mg PO Q12HR #30 tablet Home Medications: Acetaminophen [Tylenol] 650 mg PO Q6HR 10/27/17 [History] Guaifenesin [Mucinex] 600 mg PO BID 10/27/17 [History] Loratadine [Claritin] 10 mg PO PRN PRN 10/27/17 [History] Pantoprazole Sodium [Protonix] 40 mg PO BID 10/27/17 [History] Pravastatin Sodium [Pravachol] 40 mg PO DAILY 10/27/17 [History] Simethicone [Gas-X] 80 mg PO Q6H PRN 10/27/17 [History] Tiotropium [Spiriva] 18 mcg IH 0700 10/27/17 [History] Urea 100 gm MC BID 10/27/17 [History] Cholecalciferol (Vitamin D3) [Vitamin D3] 50,000 unit PO QWEEK 12/13/17 [History ] Cyanocobalamin (Vitamin B-12) [B-12] 2,000 mcg SL DAILY 12/13/17 [History] Ferrous Sulfate [Iron] 325 mg PO DAILY 12/13/17 [History] Fluticasone/Vilanterol [Breo Ellipta 100-25 Mcg INH] 1 each IH DAILY 12/13/17 [ History] Isavuconazonium Sulfate [Cresemba] 2 cap PO DAILY 12/13/17 [History] Magnesium Oxide [Magnesium] 500 mg PO DAILY 12/13/17 [History] Melatonin [Melatin] 3 mg PO HS 12/13/17 [History] Mirtazapine [Remeron] 15 mg PO HS 12/13/17 [History] Ondansetron ODT [Zofran ODT] 4 mg SL Q6HR PRN 12/13/17 [History] OxyCODONE Immed Rel [Roxicodone 5 MG] 5 mg PO DAILY 12/13/17 [History] OxyCODONE Immed Rel [Roxicodone 5 MG] 5 mg PO HS 12/13/17 [History] OxyCODONE Immed Rel [Roxicodone 5 MG] 5 mg PO Q6HR PRN 12/13/17 [History] Rivaroxaban [Xarelto] 20 mg PO DAILY 12/13/17 [History] Sodium Chloride [Sodium Chloride Tab] 1 gm PO TID 12/13/17 [History] Triamcinolone Acetonide [Nasacort] 2 spray NS DAILY 12/13/17 [History] Demeclocycline [Declomycin] 300 mg PO Q12HR #30 tablet 12/15/17 [Rx] Allergies/Adverse Reactions: 3 Allergy/AdvReac Type Severity Reaction Status Date / Time ciprofloxacin [From Cipro] Allergy Rash Verified 12/13/17 03:42 prednisone Allergy Rash Verified 12/13/17 03:42 Date of admission: 12/13/17 11:08 Primary care physician: Mary Lares Discharging clinician: Sourav Hamm Anticipated date of discharge: 12/15/17 - Constitutional Vitals: Temp Pulse Resp BP Pulse Ox 97.9 F 102 16 151/92 97 12/15/17 11:39 12/15/17 11:39 12/15/17 11:39 12/15/17 11:39 12/15/17 11:39 Exam: Examination: (Except as mentioned above): General: In no apparent distress. Alert and oriented 3. Nondiaphoretic. Head: Atraumatic and normocephalic. Respiratory: No use of accessory muscles. Lungs are clear throughout. Normal airflow. Cardiovascular: Regular rate and rhythm without murmur appreciated. Abdomen: Bowel sounds are normal. No hepatosplenomegaly mass or tenderness appreciated. Ostomy looks good and is functioning well. Extremities: No cyanosis clubbing or edema. Skin: Warm and non-diaphoretic with no new lesions noted. - Patient Status Disposition: Transfer [facility] Not [facility] Cert Condition: Fair Functional capacity at discharge: independent ambulation - Discharge Instructions Follow Up With: Mary Lares MD [Primary Care Provider] - Forms: ED Satisfaction Letter
--- NOTE | 2017-12-15 13:37 | Physician Discharge Referral ---
ExtendedCare Referral Info Transfer To: [facility] Provider in Charge after Transfer: PCP Institutional Level of Care: Skilled - Diagnosis (1) Hyponatremia Priority: Primary Status: Resolved (2) Ovarian cancer Priority: Secondary Status: Chronic (3) COPD (chronic obstructive pulmonary disease) Priority: Secondary Status: Chronic (4) Hypertension Priority: Secondary Status: Acute (5) S/P colostomy Priority: Secondary Status: Chronic (6) GERD (gastroesophageal reflux disease) Priority: Secondary Status: Chronic (7) Diabetes Priority: Secondary Status: Acute (8) Anemia Priority: Secondary Status: Acute (9) Hypokalemia Priority: Secondary Status: Acute Prognosis: Fair Aware of Diagnosis: Patient, Family Aware of Prognosis: Patient, Family - Transfer Medications Prescriptions: Demeclocycline [Declomycin] 300 mg PO Q12HR #30 tablet Home Medications: Acetaminophen [Tylenol] 650 mg PO Q6HR 10/27/17 [History] Guaifenesin [Mucinex] 600 mg PO BID 10/27/17 [History] Loratadine [Claritin] 10 mg PO PRN PRN 10/27/17 [History] Pantoprazole Sodium [Protonix] 40 mg PO BID 10/27/17 [History] Pravastatin Sodium [Pravachol] 40 mg PO DAILY 10/27/17 [History] Simethicone [Gas-X] 80 mg PO Q6H PRN 10/27/17 [History] Tiotropium [Spiriva] 18 mcg IH 0700 10/27/17 [History] Urea 100 gm MC BID 10/27/17 [History] Cholecalciferol (Vitamin D3) [Vitamin D3] 50,000 unit PO QWEEK 12/13/17 [History ] Cyanocobalamin (Vitamin B-12) [B-12] 2,000 mcg SL DAILY 12/13/17 [History] Ferrous Sulfate [Iron] 325 mg PO DAILY 12/13/17 [History] Fluticasone/Vilanterol [Breo Ellipta 100-25 Mcg INH] 1 each IH DAILY 12/13/17 [ History] Isavuconazonium Sulfate [Cresemba] 2 cap PO DAILY 12/13/17 [History] Magnesium Oxide [Magnesium] 500 mg PO DAILY 12/13/17 [History] Melatonin [Melatin] 3 mg PO HS 12/13/17 [History] Mirtazapine [Remeron] 15 mg PO HS 12/13/17 [History] Ondansetron ODT [Zofran ODT] 4 mg SL Q6HR PRN 12/13/17 [History] OxyCODONE Immed Rel [Roxicodone 5 MG] 5 mg PO DAILY 12/13/17 [History] OxyCODONE Immed Rel [Roxicodone 5 MG] 5 mg PO HS 12/13/17 [History] OxyCODONE Immed Rel [Roxicodone 5 MG] 5 mg PO Q6HR PRN 12/13/17 [History] Rivaroxaban [Xarelto] 20 mg PO DAILY 12/13/17 [History] Sodium Chloride [Sodium Chloride Tab] 1 gm PO TID 12/13/17 [History] Triamcinolone Acetonide [Nasacort] 2 spray NS DAILY 12/13/17 [History] Demeclocycline [Declomycin] 300 mg PO Q12HR #30 tablet 12/15/17 [Rx] Allergies/Adverse Reactions: 3 Allergy/AdvReac Type Severity Reaction Status Date / Time ciprofloxacin [From Cipro] Allergy Rash Verified 12/13/17 03:42 prednisone Allergy Rash Verified 12/13/17 03:42 - Respiratory Orders Smoking Cessation: Smoking cessation has been advised. For more information, call the [place] Tobacco Quit Line at 1-525-QNEVNOW. - Rehabiliation Orders Rehab Potential: Good Rehab Orders: Evaluation for Physical Therapy, Evaluation for Occupational Therapy CERTIFICATION: I certify that the transfer of the above named patient to an Extended Care Facility is necessary for the continuing treatment of the diagnosis listed. The above information is true and accurate reflection of patient's current condition. Confidential - Redisclosure prohibited without a patient's written consent.
== END 2017-12-15 14:42 | DRG 644 ==
LOC: INPGRE 03:34 → EMEROOGRE 03:34 → INPGRE 05:43